=== PATIENT | female | born 1980 | race Caucasian/White ===

== ENCOUNTER 2022-12-17 08:30 | Outpatient (RCR) | payer BC, SELFPAY | END 2023-04-16 23:59 | disposition home or self-care (01) | PROVIDERS: PCP Student in an Organized Health Care Education/Training Program; Visit Provider Family Medicine | DX: M25.562 Pain in left knee (principal); M25.571 Pain in right ankle and joints of right foot; R53.1 Weakness; M25.373 Other instability, unspecified ankle; Z51.89 Encounter for other specified aftercare | CPT/HCPCS: 97035; 97140; 97165; 97535 ==

== ENCOUNTER 2022-12-19 08:00 | Outpatient (RCR) | payer BC, SELFPAY | END 2023-02-25 16:19 | disposition home or self-care (01) | PROVIDERS: PCP Student in an Organized Health Care Education/Training Program; Visit Provider Obstetrics & Gynecology | DX: R10.2 Pelvic and perineal pain (principal); M62.838 Other muscle spasm; M62.89 Other specified disorders of muscle; M25.571 Pain in right ankle and joints of right foot; G89.29 Other chronic pain; M25.562 Pain in left knee; M25.60 Stiffness of unspecified joint, not elsewhere classified; M54.2 Cervicalgia; Z51.89 Encounter for other specified aftercare | CPT/HCPCS: 97110; 97140; 97161; 97162; 97535 ==

== ENCOUNTER 2022-12-22 13:15 | Outpatient (RCR) | payer BC, SELFPAY | END 2023-04-21 23:59 | disposition home or self-care (01) | PROVIDERS: PCP Student in an Organized Health Care Education/Training Program; Visit Provider Obstetrics & Gynecology | DX: M25.571 Pain in right ankle and joints of right foot (principal); G89.29 Other chronic pain; M25.562 Pain in left knee; M79.641 Pain in right hand; M62.838 Other muscle spasm; M54.9 Dorsalgia, unspecified; M79.10 Myalgia, unspecified site; M54.2 Cervicalgia; M25.60 Stiffness of unspecified joint, not elsewhere classified; M25.373 Other instability, unspecified ankle; R29.898 Other symptoms and signs involving the musculoskeletal system; K66.0 Peritoneal adhesions (postprocedural) (postinfection); L90.5 Scar conditions and fibrosis of skin; R32 Unspecified urinary incontinence; R15.9 Full incontinence of feces; M99.05 Segmental and somatic dysfunction of pelvic region; Z51.89 Encounter for other specified aftercare | CPT/HCPCS: 97110; 97162; 97530 ==